=== PATIENT | female | born 1990 | race African-American/Black ===

== ENCOUNTER 2017-12-16 15:56 | Emergency (ER) | payer OTHER ==
[~2017-12-16] VITALS: Ht 157.5 cm; Wt 65.3 kg
[2017-12-16] MEDS ORDERED: LIDOCAINE VISCOUS 2% UD 15 ML UDC ONE (16:56)
[2017-12-16] MEDS ORDERED: MAG HYDROX/AL HYDROX/SIMETH 30 ML UDC ONE (16:57)
[2017-12-16] MEDS ORDERED: MAG HYDROX/AL HYDROX/SIMETH 30 ML UDC PO ONE (17:00)
[2017-12-16] MEDS ORDERED: LIDOCAINE VISCOUS 2% UD 15 ML UDC MM ONE (17:00)
--- NOTE | 2017-12-16 17:00 | NUR ---
pt updated, reclining in bed appears comfortable conversing w/parent. Await dispo
[2017-12-16 18:03] VITALS: BP 122/66
--- NOTE | 2017-12-16 18:04 | NUR ---
Patient discharged to home in stable condition. Written and verbal after care instructions given. Patient verbalizes understanding of instruction.
== END 2017-12-16 18:04 | disposition home or self-care (01) ==
LOC: ER 15:57
DX: R10.13 Epigastric pain (principal); I49.8 Other specified cardiac arrhythmias; R07.89 Other chest pain; Z86.718 Personal history of other venous thrombosis and embolism
CPT/HCPCS: 71045-TC; A4606; A6402; Z7610

== ENCOUNTER 2018-05-17 14:59 | Emergency (ER) | payer OTHER ==
[~2018-05-17] VITALS: Ht 157.5 cm; Wt 64.4 kg
[2018-05-17 14:59] VITALS: BP 106/68
== END 2018-05-17 15:48 | disposition home or self-care (01) ==
LOC: ER 15:03
DX: J06.9 Acute upper respiratory infection, unspecified (principal); F17.200 Nicotine dependence, unspecified, uncomplicated
CPT/HCPCS: 99282; A4606